=== PATIENT | male | born 1955 | race African-American/Black ===

== ENCOUNTER → 2016-11-05 | Outpatient (CLI) | payer MEDICARE, BC ==
[~2016-11-05] MED LIST: GLIP5TAB12 PO; METO-411 PO; NIFE20CA PO; UNK BP MED; [UNRECOGNIZED DRUG - REMARK]
== END | disposition home or self-care (01) ==
LOC: NM 07:37
PROVIDERS: ATTEND Urology
DX: C61 Malignant neoplasm of prostate (principal); F40.240 Claustrophobia
CPT/HCPCS: 72192; 78306; A9503

== ENCOUNTER → 2016-11-27 | Outpatient (CLI) | payer MEDICARE, BC | END | disposition home or self-care (01) | LOC: NM 08:54 | PROVIDERS: ATTEND Urology | DX: C61 Malignant neoplasm of prostate (principal) | CPT/HCPCS: 78306; A9503 ==

== ENCOUNTER 2017-04-16 15:39 | Inpatient (IN) | payer MEDICARE, BC ==
[~2017-04-16] VITALS: Ht 175.3 cm; Wt 131.1 kg
[2017-04-16] MEDS ORDERED: SODIUM CHLORIDE 0.9% 1,000 ML IV ONE (16:44)
[2017-04-16] MEDS ORDERED: ACETAMINOPHEN 325MG TABLET PO STA (16:44)
[2017-04-16] MEDS ORDERED: LIDOCAINE HCL/PF 1% 2ML VIAL ONE (16:48)
[2017-04-16 17:13] LABS: BG BASE EXCESS -1.1 mmol/L (-2.0-2.0); BG CARBOXYHEMOGLOBIN 1.2 % (0.5-1.5); BG DEOXYHEMOGLOBIN 1.6 % (0.0-5.0); BG HCO3 ACT 24.5 mmol/L (22.0-26.0); BG METHEMOGLOBIN 0.3 % (0.0-1.5); BG OXYGEN SATURATION 98.4 % (92.0-98.5); BG OXYHEMOGLOBIN 96.9 % (94.0-97.0); BG PH 7.354 (7.350-7.450); BG PO2 136.3 mmHg (75.0-100.0); BG SAMPLE SITE RIGHT RADIAL; BG TOTAL HEMOGLOBIN 10.7 g/dL (12.0-18.0); BG VENT MODE MASK - NRB
[2017-04-16 17:28] LABS: HEMATOCRIT. 28.1 % (42.0-52.0); HEMOGLOBIN. 9.2 g/dL (14.0-18.0); MEAN CORPUSCULAR HEMOGLOBIN 28.8 pg (28.0-32.0); MEAN CORPUSCULAR VOLUME 87.7 fL (80.0-94.0); MEAN PLATELET VOLUME 6.5 fl (7.4-10.4); PLATELET 239 x1000/uL (130-400); RED BLOOD CELL COUNT 3.21 mill/uL (4.7-6.1); RED CELL DISTRIBUTION WIDTH 16.5 % (11.6-14.6)
[2017-04-16 17:32] LABS: INR 1.1; PROTHROMBIN TIME 11.6 sec (9.4-11.6)
[2017-04-16 17:40] LABS: CHLORIDE 100 mEq/L (98-107)
[2017-04-16 17:52] LABS: PLATELET ESTIMATE NORMAL
[2017-04-16] MEDS ORDERED: VANCOMYCIN 1 G PREMIX 200 ML IV ONE (18:45)
[2017-04-16] MEDS ORDERED: PIPERACILLIN/TAZ 3.375G PREMIX 50 ML IV ONE (18:45)
[2017-04-16 22:08] LABS: BG BASE EXCESS 1.3 mmol/L (-2.0-2.0); BG BILEVEL POS AIRWAY PRESSURE 15/5; BG CARBOXYHEMOGLOBIN 0.9 % (0.5-1.5); BG DEOXYHEMOGLOBIN 3.9 % (0.0-5.0); BG FRACTION INSPIRED OXYGEN 60; BG HCO3 ACT 27.1 mmol/L (22.0-26.0); BG METHEMOGLOBIN 0.3 % (0.0-1.5); BG OXYGEN SATURATION 96.1 % (92.0-98.5); BG OXYHEMOGLOBIN 94.9 % (94.0-97.0); BG PCO2 48.9 mmHg (35.0-45.0); BG PH 7.361 (7.350-7.450); BG PO2 86.5 mmHg (75.0-100.0); BG SAMPLE SITE RIGHT RADIAL; BG VENT MODE MASK - BIPAP
[2017-04-16] MEDS ORDERED: ACETAMINOPHEN 325MG TABLET PO PRN (22:15)
[2017-04-16] MEDS ORDERED: DEXTROSE 50% WATER 50ML SYRINGE IV PRN (22:15)
[2017-04-16] MEDS ORDERED: VANCOMYCIN 1 G PREMIX 200 ML IV SCH (22:15)
[2017-04-16] MEDS ORDERED: CLONIDINE 0.1MG TABLET PO PRN (22:15)
[2017-04-16] MEDS ORDERED: IPRATROPIUM/ALBUTEROL 0.5-3(2.5)MG/3ML NEB INH PRN (22:15)
[2017-04-16] MEDS ORDERED: ONDANSETRON HCL 4MG/2ML VIAL IV PRN (22:15)
[2017-04-16 23:24] VITALS: BP 127/56
[2017-04-16] MEDS ORDERED: FURO20TA4 PO (23:42)
[2017-04-16] MEDS ORDERED: BUSP10TA3 PO (23:42)
[2017-04-16] MEDS ORDERED: ATOR20TA PO (23:42)
[2017-04-16] MEDS ORDERED: NIFE30TA94 PO (23:42)
[2017-04-16] MEDS ORDERED: SEVE800T8 PO (23:42)
[2017-04-17] VITALS (12 sets, daily range): BP systolic 122–159; BP diastolic 59–80
[2017-04-17] MEDS: PIPERACILLIN/TAZ 2.25G PREMIX 50 ML IV SCH ×3 (00:59→18:13)
[2017-04-17] MEDS ORDERED: VANCOMYCIN 500 MG PREMIX 100 ML IV NR (02:00)
[2017-04-17] MEDS: SODIUM CHLORIDE 0.9% INJ 3ML FLUSH IVF SCH ×3 (06:29→23:48)
[2017-04-17] MEDS: BLOOD SUGAR DIAGNOSTIC STRIP TEST SCH ×4 (06:29→21:00)
[2017-04-17] MEDS ORDERED: INFLUENZA VIRUS VACCINE 0.5ML SYR IM ONE (08:00)
[2017-04-17 08:43] LABS: BG DEOXYHEMOGLOBIN 13.3 % (0.0-5.0); BG FRACTION INSPIRED OXYGEN 32; BG HCO3 ACT 24.2 mmol/L (22.0-26.0); BG METHEMOGLOBIN 0.3 % (0.0-1.5); BG OXYGEN SATURATION 86.5 % (92.0-98.5); BG OXYHEMOGLOBIN 85.4 % (94.0-97.0); BG PCO2 42.5 mmHg (35.0-45.0); BG PH 7.374 (7.350-7.450); BG PO2 51.4 mmHg (75.0-100.0); BG SAMPLE SITE RIGHT BRACHIAL; BG TOTAL HEMOGLOBIN 9.4 g/dL (12.0-18.0); BG VENT MODE NASAL CANNULA
[2017-04-17] MEDS ORDERED: PNEUMOCOCCAL 23-VAL P-SAC VAC 0.5 ML IM ONE (09:00)
[2017-04-17] MEDS ORDERED: DEXTROSE 50% WATER 50ML SYRINGE IV PRN ×2 (11:15→12:45)
[2017-04-17 11:22] LABS: HEMATOCRIT. 25.7 % (42.0-52.0); HEMOGLOBIN. 8.5 g/dL (14.0-18.0); MEAN CORPUSCULAR HEMOGLOBIN 28.6 pg (28.0-32.0); MEAN CORPUSCULAR VOLUME 86.9 fL (80.0-94.0); MEAN PLATELET VOLUME 6.1 fl (7.4-10.4); PLATELET 216 x1000/uL (130-400); RED BLOOD CELL COUNT 2.95 mill/uL (4.7-6.1); RED CELL DISTRIBUTION WIDTH 16.1 % (11.6-14.6)
[2017-04-17] MEDS ORDERED: INSULIN LISPRO 100 UNITS/ML SUBCUT SCH (12:20)
[2017-04-17] MEDS: SEVELAMER CARBONATE 800 MG TABLET PO SCH ×2 (12:31→18:06)
[2017-04-17 12:49] LABS: PLATELET ESTIMATE NORMAL
[2017-04-17 13:01] LABS: T4 FREE 1.09 ng/dL (0.76-1.46)
[2017-04-17 16:09] LABS: CREATINE KINASE MB FRACTION 0.8 ng/mL (0.5-3.6); TROPONIN I 0.06 ng/mL (0.00-0.04)
[2017-04-17] MEDS: INSULIN LISPRO 100 UNITS/ML SUBCUT SCH ×2 (17:20→21:00)
[2017-04-17] MEDS ORDERED: VANCOMYCIN 750 MG PREMIX 150 ML IV NR (18:00)
[2017-04-17] MEDS ORDERED: PARICALCITOL 5 MCG/ML 1ML IV SCH (20:00)
[2017-04-17] MEDS ORDERED: EPOETIN ALFA 10000UNITS/ML VIAL SUBCUT SCH (21:00)
[2017-04-17 21:44] LABS: CLARITY URINE TURBID (CLEAR); COLOR URINE ORANGE (YELLOW); KETONES URINE TRACE (NEGATIVE); LEUKOCYTE ESTERASE URINE 1+ (NEGATIVE); NITRITE URINE NEGATIVE (NEGATIVE); OCCULT BLOOD URINE 3+ (NEGATIVE); PROTEIN URINE 3+ (NEGATIVE); SPECIFIC GRAVITY URINE 1.016 (1.005-1.030); UROBILINOGEN URINE 0.2 E.U./dL (0.2-1.0)
[2017-04-17] MEDS ORDERED: TAMSULOSIN HCL 0.4MG SR CAPSULE PO SCH (22:30)
[2017-04-17 23:01] LABS: TROPONIN I 0.06 ng/mL (0.00-0.04)
[2017-04-17 23:02] LABS: CREATINE KINASE MB FRACTION 0.9 ng/mL (0.5-3.6)
[2017-04-18] VITALS (9 sets, daily range): BP systolic 116–155; BP diastolic 50–78
[2017-04-18] MEDS: PIPERACILLIN/TAZ 2.25G PREMIX 50 ML IV SCH ×2 (02:10→09:47)
[2017-04-18] MEDS: SODIUM CHLORIDE 0.9% INJ 3ML FLUSH IVF SCH ×2 (06:18→12:33)
[2017-04-18] MEDS: BLOOD SUGAR DIAGNOSTIC STRIP TEST SCH ×2 (06:18→11:14)
[2017-04-18] MEDS: INSULIN LISPRO 100 UNITS/ML SUBCUT SCH ×2 (06:28→11:16)
[2017-04-18 06:58] LABS: HEMOGLOBIN. 8.6 g/dL (14.0-18.0); MEAN CORPUSCULAR VOLUME 88.2 fL (80.0-94.0); MEAN PLATELET VOLUME 6.8 fl (7.4-10.4); PLATELET 218 x1000/uL (130-400); RED BLOOD CELL COUNT 2.95 mill/uL (4.7-6.1); RED CELL DISTRIBUTION WIDTH 16.3 % (11.6-14.6)
[2017-04-18 07:48] LABS: CREATINE KINASE MB FRACTION 0.9 ng/mL (0.5-3.6); PHOSPHORUS 3.4 mg/dL (2.5-4.9); TROPONIN I 0.05 ng/mL (0.00-0.04)
[2017-04-18] MEDS: SEVELAMER CARBONATE 800 MG TABLET PO SCH ×2 (07:56→12:33)
[2017-04-18] MEDS ORDERED: FOLIC ACID/VITAMIN B COMP W-C TABLET PO SCH (09:00)
[2017-04-18] MEDS ORDERED: LEVOFLOXACIN 250MG TABLET PO SCH (11:00)
[2017-04-18] MEDS ORDERED: VANCOMYCIN 1 G PREMIX 200 ML IV SCH (12:00)
[2017-04-18 14:02] LABS: PLATELET ESTIMATE NORMAL
== END 2017-04-18 15:15 | disposition home or self-care (01) | DRG 871 ==
LOC: ER 16:03 → 3WST 19:37 → EDBEDREQSVC 21:34 → ENRESERV 22:00 → EDBEDREQTM 22:37
PROVIDERS: ADMIT Internal Medicine; ATTEND Internal Medicine
PROC: 5A09357 Assistance with Respiratory Ventilation, Less than 24 Consecutive Hours, Continuous Positive Airway Pressure (ICD-10-PCS; principal; 2017-04-16)
PROC: 5A1D70Z Performance of Urinary Filtration, Intermittent, Less than 6 Hours Per Day (ICD-10-PCS; 2017-04-17)
DX: A41.9 Sepsis, unspecified organism (principal); J96.91 Respiratory failure, unspecified with hypoxia; I13.2 Hypertensive heart and chronic kidney disease with heart failure and with stage 5 chronic kidney disease, or end stage renal disease; G93.41 Metabolic encephalopathy; J18.9 Pneumonia, unspecified organism; N18.6 End stage renal disease; I50.9 Heart failure, unspecified; E11.22 Type 2 diabetes mellitus with diabetic chronic kidney disease; N39.0 Urinary tract infection, site not specified; Z68.41 Body mass index [BMI] 40.0-44.9, adult; E66.9 Obesity, unspecified; G47.33 Obstructive sleep apnea (adult) (pediatric); D64.9 Anemia, unspecified; E21.1 Secondary hyperparathyroidism, not elsewhere classified; Z82.49 Family history of ischemic heart disease and other diseases of the circulatory system; Z85.46 Personal history of malignant neoplasm of prostate; Z87.891 Personal history of nicotine dependence; Z98.42 Cataract extraction status, left eye; Z99.2 Dependence on renal dialysis; Z79.899 Other long term (current) drug therapy
CPT/HCPCS: 36415; 36600; 70450; 71045; 78580; 80048; 80053; 80061; 80202; 81001; 82375; 82550; 82553; 82805; 82962; 83036; 83605; 83880; 84100; 84439; 84443; 84484; 85025; 85379; 85610; 87040; 87086; 90686; 90732; 93005; 93306; 93970; 94660; 96361; 96365; 96366; 96367; 97162; 99291; J0885; J2501; J2543; J3370; J3490; J7030; J7050

== ENCOUNTER 2018-04-23 08:21 | Day surgery (SDC) | payer MEDICARE, BC ==
[~2018-04-23] VITALS: Ht 179.1 cm; Wt 123.4 kg
[~2018-04-23 08:21] MED LIST changes: +ATOR20TA PO; +BUSP10TA3 PO; +FURO20TA4 PO; -NIFE20CA PO; +NIFE30TA94 PO; +SEVE800T8 PO; -UNK BP MED; -[UNRECOGNIZED DRUG - REMARK]
[2018-04-23] MEDS ORDERED: GELATIN SPONGE,ABSORBABLE 12-7MM SPONGE ONE ×2 (08:55→10:45)
[2018-04-23] MEDS ORDERED: HEPARIN 5000 UNITS/ML VIAL ONE (08:55)
[2018-04-23] MEDS ORDERED: PAPAVERINE HCL 30 MG/ML 2ML IV ONE (08:55)
[2018-04-23] MEDS ORDERED: THROMBIN (BOVINE) 5000 UNITS/VIAL TOP ONE ×2 (08:56→09:03)
[2018-04-23] MEDS ORDERED: LIDOCAINE HCL 1% 20ML VIAL (Pyxis) INJ ONE (08:56)
[2018-04-23] MEDS ORDERED: BACITRACIN 15GM TUBE TOP ONE (08:56)
[2018-04-23] MEDS ORDERED: NORMAL SALINE 0.9% 10 ML SYR ONE (08:57)
[2018-04-23] MEDS ORDERED: HEPARIN SODIUM 1,000 UNIT/1ML VIAL IV ONE (08:57)
[2018-04-23] MEDS ORDERED: BACITRACIN 50,000 UNITS/VIAL ONE (08:57)
[2018-04-23] MEDS ORDERED: BUPIVACAINE HCL/PF 0.5% (5MG/ML) 10ML ONE (08:57)
[2018-04-23] MEDS ORDERED: SODIUM CHLORIDE 0.9% 500 ML IV ONE (09:40)
[2018-04-23] MEDS ORDERED: PROPOFOL 200MG/20ML VIAL IV ONE ×2 (10:17→10:31)
[2018-04-23] MEDS ORDERED: MIDAZOLAM HCL 2 MG/2 ML VIAL ONE (10:17)
[2018-04-23] MEDS ORDERED: FENTANYL CITRATE/PF 50MCG/ML 2ML VIAL ONE (10:17)
[2018-04-23] MEDS ORDERED: CEFAZOLIN SODIUM 1000MG/VIAL ONE (10:35)
[2018-04-23] MEDS ORDERED: LIDOCAINE HCL/PF 1% 10 MG/ML 5ML VIAL ONE (10:35)
[2018-04-23] MEDS ORDERED: TAMS0.4C31 PO (10:52)
[2018-04-23] MEDS ORDERED: SKIN ADHESIVE 0.7 GM EA TOP ONE (11:45)
[2018-04-23] MEDS ORDERED: HYDROCODONE/ACETAMINOPHEN 5/325MG TABLET PO PRN ×2 (12:00)
[2018-04-23] MEDS ORDERED: ONDANSETRON HCL 4MG/2ML INJ IV PRN ×2 (12:00→12:15)
[2018-04-23] MEDS ORDERED: FENTANYL CITRATE/PF 50MCG/ML 2ML VIAL IV PRN (12:15)
[2018-04-23] MEDS ORDERED: SODIUM CHLORIDE 0.9% INJ 3ML FLUSH IVF SCH (22:00)
== END 2018-04-23 13:05 | disposition home or self-care (01) ==
LOC: OR 08:21
PROVIDERS: ATTEND Surgery Vascular Surgery
DX: I77.0 Arteriovenous fistula, acquired (principal); I12.0 Hypertensive chronic kidney disease with stage 5 chronic kidney disease or end stage renal disease; E11.22 Type 2 diabetes mellitus with diabetic chronic kidney disease; N18.6 End stage renal disease; Z87.891 Personal history of nicotine dependence
CPT/HCPCS: 36415; 36832; 82962; 84132; 88300; G0168; J0690; J1644; J2250; J2704; J3010; J3490; J7040; J2440